=== PATIENT | male | born 1945 | race Asian ===

== ENCOUNTER 2019-02-14 12:11 | Emergency (ER) | payer MEDICARE, OTHER ==
[~2019-02-14] VITALS: Ht 167.6 cm; Wt 64.9 kg
[~2019-02-14 12:11] MED LIST: COREG12.5 MG PO; FISH OIL1 CAP PO; FLO4 PO; LOSARTAN POTASS50 M1 PO; MIRALAX17 GM/Dose PO; MULTI-VITAMINS1 TAB PO; NATURAL IRON65 MG PO; NEURONTIN400 MG PO; NIT0.4 SL; OSTEO BI-FLEX1 TAB PO; OXYBUTYNIN CHLOR5 MG PO; PLA75 PO; SIMVASTATIN40 M1 PO; XANAX0.25 MG PO
[2019-02-14 12:31] VITALS: Ht 167.6 cm; Wt 64.9 kg
[2019-02-14 13:22] LABS: CALCIUM 8.7 mg/dL (8.5-10.1); CARBON DIOXIDE 28.6 mmol/L (21-32); CHLORIDE SERUM 104 mmol/L (98-107); CREATININE SERUM 0.7 mg/dL (0.7-1.3); GLUCOSE SERUM 183 mg/dL (74-106); POTASSIUM SERUM 4.6 mmol/L (3.5-5.1); SODIUM SERUM 138 mmol/L (136-145)
[2019-02-14 13:24] LABS: BASOPHIL % 0.2 % (0-2); PLATELET COUNT 181 x10^3mcL (130-400); RED CELL DISTRIBUTION WIDTH 13.6 % (11.5-14.5)
[2019-02-14 13:26] LABS: ALBUMIN 3.9 g/dL (3.4-5.0); ALKALINE PHOSPHATASE 79 U/L (46-116); ALT/SGPT 123 U/L (16-63); AST/SGOT 177 U/L (15-37); BILIRUBIN TOTAL 0.95 mg/dL (0.20-1.00); LIPASE 325 IU/L (73-393); TOTAL PROTEIN, SERUM 7.3 g/dL (6.4-8.2)
[2019-02-14 15:27] VITALS: BP 131/84
== END 2019-02-14 15:27 | disposition home or self-care (01) ==
LOC: ED 12:11
PROVIDERS: Emergency Medicine
DX: K80.80 Other cholelithiasis without obstruction (principal); I10 Essential (primary) hypertension
CPT/HCPCS: J2270; J2405; J7030; Q0092

== ENCOUNTER 2019-11-02 20:05 | Inpatient (IN) | payer OTHER, MEDICARE ==
[~2019-11-02] VITALS: Ht 167.6 cm; Wt 71.8 kg
[2019-11-02 20:17] VITALS: Ht 167.6 cm; Wt 71.8 kg
[2019-11-02 21:25] LABS: BASOPHIL % 0.2 % (0-2); PLATELET COUNT 178 x10^3mcL (130-400); RED CELL DISTRIBUTION WIDTH 14.2 % (11.5-14.5)
[2019-11-02 21:30] LABS: CALCIUM 8.2 mg/dL (8.5-10.1); CARBON DIOXIDE 27.1 mmol/L (21-32); CHLORIDE SERUM 102 mmol/L (98-107); GLUCOSE SERUM 148 mg/dL (74-106); POTASSIUM SERUM 4.4 mmol/L (3.5-5.1); SODIUM SERUM 138 mmol/L (136-145)
[2019-11-02 21:34] LABS: ALKALINE PHOSPHATASE 152 U/L (46-116); ALT/SGPT 97 U/L (16-63); AST/SGOT 171 U/L (15-37); LIPASE 156 IU/L (73-393); TOTAL PROTEIN, SERUM 6.8 g/dL (6.4-8.2)
[2019-11-02 21:39] LABS: ALBUMIN 3.2 g/dL (3.4-5.0)
[2019-11-02 22:44] LABS: microscopic required? YES; urine erythrocyte NEGATIVE (NEGATIVE)
[2019-11-03 00:11] LABS: FREE T4 1.19 ng/dL (0.76-1.46); FREE THYROXINE INDEX 2.7 ug/dL (1.4-4.5); T4(THYROXINE) 7.8 ug/dL (4.7-13.3)
[2019-11-03 00:26] LABS: T3 TOTAL 0.66 ng/mL
[2019-11-03 00:59] LABS: CHOLESTEROL/HDL RATIO 3.3
[2019-11-03 03:45] VITALS: BP 100/52
[2019-11-03 04:40] VITALS: BP 101/54
[2019-11-03 06:56] LABS: BASOPHIL % 0.1 % (0-2); PLATELET COUNT 166 x10^3mcL (130-400); RED CELL DISTRIBUTION WIDTH 13.7 % (11.5-14.5)
[2019-11-03 07:40] LABS: CALCIUM 7.8 mg/dL (8.5-10.1); CARBON DIOXIDE 25.6 mmol/L (21-32); CHLORIDE SERUM 106 mmol/L (98-107); CREATININE SERUM 0.8 mg/dL (0.7-1.3); GLUCOSE SERUM 117 mg/dL (74-106); MAGNESIUM 2.3 mg/dL (1.8-2.4); PHOSPHOROUS 4.2 mg/dL (2.5-4.9); POTASSIUM SERUM 4.6 mmol/L (3.5-5.1); SODIUM SERUM 141 mmol/L (136-145)
[2019-11-03 09:10] VITALS: BP 139/55
[2019-11-03 09:31] LABS: ALBUMIN 3.5 g/dL (3.4-5.0); BILIRUBIN DIRECT 1.42 mg/dL (0.0-0.2); BILIRUBIN TOTAL 1.9 mg/dL (0.20-1.00)
[2019-11-03 13:44] VITALS: BP 109/53
[2019-11-03 18:16] VITALS: BP 139/66
[2019-11-03 20:08] VITALS: BP 116/56
[2019-11-04 05:31] VITALS: BP 112/70
[2019-11-04 06:28] LABS: PLATELET COUNT 159 x10^3mcL (130-400); RED CELL DISTRIBUTION WIDTH 14.3 % (11.5-14.5)
[2019-11-04 07:03] LABS: BASOPHIL % 0 % (0-2); CALCIUM 7.9 mg/dL (8.5-10.1); CARBON DIOXIDE 25.2 mmol/L (21-32); CHLORIDE SERUM 107 mmol/L (98-107); CREATININE SERUM 0.8 mg/dL (0.7-1.3); GLUCOSE SERUM 120 mg/dL (74-106); MAGNESIUM 2.1 mg/dL (1.8-2.4); PHOSPHOROUS 1.5 mg/dL (2.5-4.9); POTASSIUM SERUM 3.9 mmol/L (3.5-5.1); SODIUM SERUM 142 mmol/L (136-145)
[2019-11-04 08:06] VITALS: BP 146/82
[2019-11-04 09:37] LABS: ALBUMIN 2.7 g/dL (3.4-5.0); BILIRUBIN DIRECT 2.63 mg/dL (0.0-0.2); BILIRUBIN TOTAL 2.9 mg/dL (0.20-1.00); TOTAL PROTEIN, SERUM 6.2 g/dL (6.4-8.2)
[2019-11-04 13:22] VITALS: BP 115/64
[2019-11-04 16:35] VITALS: BP 105/53
[2019-11-04 20:45] VITALS: BP 140/97
[2019-11-05 06:21] VITALS: BP 117/72
[2019-11-05 06:40] LABS: PLATELET COUNT 156 x10^3mcL (130-400); RED CELL DISTRIBUTION WIDTH 14.1 % (11.5-14.5)
[2019-11-05 06:56] LABS: CALCIUM 7.8 mg/dL (8.5-10.1); CARBON DIOXIDE 25.6 mmol/L (21-32); CHLORIDE SERUM 105 mmol/L (98-107); CREATININE SERUM 0.8 mg/dL (0.7-1.3); GLUCOSE SERUM 114 mg/dL (74-106); PHOSPHOROUS 1.5 mg/dL (2.5-4.9); POTASSIUM SERUM 3.5 mmol/L (3.5-5.1); SODIUM SERUM 139 mmol/L (136-145)
[2019-11-05 07:24] LABS: BASOPHIL % 0 % (0-2)
[2019-11-05 09:24] LABS: BILIRUBIN DIRECT 2.96 mg/dL (0.0-0.2); BILIRUBIN TOTAL 3.4 mg/dL (0.20-1.00)
[2019-11-05 09:25] LABS: ALBUMIN 2.5 g/dL (3.4-5.0)
[2019-11-05 09:50] VITALS: BP 126/71
[2019-11-05 13:44] VITALS: BP 102/65
[2019-11-05 18:02] VITALS: BP 141/84
[2019-11-05 20:55] VITALS: BP 141/83
[2019-11-06 05:59] VITALS: BP 129/66
[2019-11-06 06:42] LABS: BASOPHIL % 0.3 % (0-2); PLATELET COUNT 160 x10^3mcL (130-400); RED CELL DISTRIBUTION WIDTH 14.4 % (11.5-14.5)
[2019-11-06 06:55] LABS: MAGNESIUM 1.8 mg/dL (1.8-2.4); PHOSPHOROUS 1.9 mg/dL (2.5-4.9)
[2019-11-06 06:58] LABS: ALKALINE PHOSPHATASE 160 U/L (46-116); ALT/SGPT 53 U/L (16-63); AST/SGOT 35 U/L (15-37); BILIRUBIN TOTAL 1.6 mg/dL (0.20-1.00); CALCIUM 7.7 mg/dL (8.5-10.1); CARBON DIOXIDE 26.3 mmol/L (21-32); CHLORIDE SERUM 105 mmol/L (98-107); CREATININE SERUM 0.6 mg/dL (0.7-1.3); GLUCOSE SERUM 109 mg/dL (74-106); POTASSIUM SERUM 3.2 mmol/L (3.5-5.1); SODIUM SERUM 141 mmol/L (136-145)
[2019-11-06 06:59] LABS: ALBUMIN 2.4 g/dL (3.4-5.0); TOTAL PROTEIN, SERUM 5.8 g/dL (6.4-8.2)
[2019-11-06 09:11] VITALS: BP 118/62
[2019-11-06 13:10] VITALS: BP 145/79
[2019-11-06] MEDS ORDERED: LEVAQUIN500 M1 PO (14:42)
[2019-11-06 17:49] VITALS: BP 144/86
[2019-11-06 22:55] VITALS: BP 148/57
[2019-11-07 01:46] LABS: AMPHETAMINE QUAL UR NONE DETECTED (See below)
[2019-11-07 06:24] VITALS: BP 149/88
[2019-11-07 07:17] LABS: BASOPHIL % 0.4 % (0-2); PLATELET COUNT 219 x10^3mcL (130-400)
[2019-11-07 07:34] LABS: CARBON DIOXIDE 26.4 mmol/L (21-32); CHLORIDE SERUM 106 mmol/L (98-107); CREATININE SERUM 0.6 mg/dL (0.7-1.3); GLUCOSE SERUM 108 mg/dL (74-106); MAGNESIUM 1.9 mg/dL (1.8-2.4); PHOSPHOROUS 3.1 mg/dL (2.5-4.9); POTASSIUM SERUM 3.5 mmol/L (3.5-5.1); SODIUM SERUM 143 mmol/L (136-145)
[2019-11-07 09:12] VITALS: BP 164/85
[2019-11-07 12:31] VITALS: BP 159/86
[2019-11-07] MEDS ORDERED: AUGMENTIN 875-1 EACH PO (13:53)
[2019-11-07 14:09] VITALS: BP 159/86
== END 2019-11-07 15:11 | disposition home or self-care (01) | DRG 720 ==
LOC: ED 20:05 → DU 23:24 → MU 23:24 → DU 11-03 03:18 → MU 11-03 03:41
PROVIDERS: Emergency Medicine; Internal Medicine; Internal Medicine Gastroenterology; ADMIT Family Medicine
PROC: 0DB68ZX Excision of Stomach, Via Natural or Artificial Opening Endoscopic, Diagnostic (ICD-10-PCS; principal; 2019-11-03 12:00)
DX: A41.9 Sepsis, unspecified organism (principal); E44.0 Moderate protein-calorie malnutrition; D64.9 Anemia, unspecified; E78.00 Pure hypercholesterolemia, unspecified; E83.51 Hypocalcemia; K52.9 Noninfective gastroenteritis and colitis, unspecified; I10 Essential (primary) hypertension; E78.5 Hyperlipidemia, unspecified; M79.5 Residual foreign body in soft tissue; M17.0 Bilateral primary osteoarthritis of knee; N40.0 Benign prostatic hyperplasia without lower urinary tract symptoms; Z87.11 Personal history of peptic ulcer disease; Z82.49 Family history of ischemic heart disease and other diseases of the circulatory system; Z82.3 Family history of stroke; Z80.9 Family history of malignant neoplasm, unspecified; Z87.891 Personal history of nicotine dependence; Z98.84 Bariatric surgery status; Z68.24 Body mass index [BMI] 24.0-24.9, adult; Z79.899 Other long term (current) drug therapy
CPT/HCPCS: 43235; 74181; 78226; 83880; 84439; 87046; 87046-59; A9537; G0378; J1200; J1610; J2250; J2270; J2310; J2405; J2543; J3010; J3490; J7030; Q0092